=== PATIENT | male | born 1970 | race Caucasian/White ===

== ENCOUNTER 2018-12-26 14:56 | Emergency (ER) | payer BC ==
[2018-12-26] MEDS ORDERED: NS 1,000 ML IV ONE (15:02)
--- NOTE | 2018-12-26 15:14 | EDPHY ---
H & P Stated Complaint: Bloody Stool Time Seen by Provider: 12/26/18 15:02 HPI/ROS: CHIEF COMPLAINT: GI bleeding, upper respiratory infection, fatigue HISTORY OF PRESENT ILLNESS: The patient is referred to the emergency department by his primary care provider for evaluation of multiple complaints. The patient does have a history of diabetes, rheumatoid arthritis and Sjogren syndrome. He does chronically use NSAIDs. The patient has had 3 weeks of some upper abdominal discomfort which has been mild in nature. The patient has been having intermittent hematochezia. He describes fairly typical hematochezia with morning bowel movements. The patient denies any melena or maroon stools. The patient has had a history of an upper respiratory infection with sinus pressure. The patient was noted to be orthostatic in his primary care provider' s office. The patient did have some vomiting and diarrhea. REVIEW OF SYSTEMS: A comprehensive 10 point review of systems is otherwise negative aside from elements mentioned in the history of present illness. Source: Patient - Personal History Current Tetanus Diphtheria and Acellular Pertussis (TDAP): Yes - Medical/Surgical History Hx Asthma: No Hx Chronic Respiratory Disease: No Hx Diabetes: Yes Hx Cardiac Disease: No Hx Renal Disease: No Hx Cirrhosis: No Hx Alcoholism: No Hx HIV/AIDS: No Hx Splenectomy or Spleen Trauma: No Other PMH: arthritis, dm 2, htn - Social History Smoking Status: Never smoked - Physical Exam Exam: General Appearance: Alert, no distress Eyes: Pupils equal and round no pallor or injection ENT, Mouth: Mucous membranes moist Respiratory: There are no retractions, lungs are clear to auscultation Cardiovascular: Regular rate and rhythm Gastrointestinal: Abdomen is soft and nontender, no masses, bowel sounds normal Rectal: Multiple external hemorrhoids noted, none bleeding, brown stool noted Neurological: 5/5 strength all 4 extremities Skin: Warm and dry, no rashes Musculoskeletal: Neck is supple nontender Extremities: symmetrical, full range of motion Psychiatric: Patient is oriented X 3, there is no agitation Constitutional: Initial Vital Signs Temperature (C) 37.4 C 12/26/18 15:04 Heart Rate 96 12/26/18 15:04 Respiratory Rate 18 12/26/18 15:04 Blood Pressure 136/93 H 12/26/18 15:04 O2 Sat (%) 98 12/26/18 15:04 O2 Delivery Mode Room Air Allergies/Adverse Reactions: adhesive tape Allergy (Verified 12/26/18 15:02) Home Medications: Medication Instructions Recorded Cozaar 12/26/18 Diclofenac Sodium 12/26/18 Medrol 12/26/18 Metformin HCl 12/26/18 Orencia 12/26/18 Simvastatin 12/26/18 Medical Decision Making - Diagnostics Imaging Results: Chest x-ray PA lateral. Impression negative for pneumonia or focal infiltrate. ED Course/Re-evaluation: The patient is referred emergency department secondary to concerns about possible anemia. Patient has had some very mild intermittent hematochezia. The patient is noted to be hemodynamically stable. He has heme-negative stool from below. He does have hemorrhoids on exam. The patient does have mild anemia which is chronic. The patient is metabolic panel is within normal limits. He has of slightly elevated transaminitis. He has no right upper quadrant pain or tenderness. The patient has had symptoms of a cough and upper respiratory infection. Patient has no hypoxemia or fever. The patient has had a cough but has no evidence of a pneumonia on chest x-ray. At this point time the patient has had mild intermittent hematochezia without evidence of significant blood loss. He has no hypotension or tachycardia in the emergency department. I do feel it is reasonable to have the patient begin a proton pump inhibitor and stop taking his NSAIDs. The patient should schedule a follow-up appointment with Gastroenterology. The patient does have symptoms of an upper respiratory infection which is viral in nature. I see no indication for antibiotics at this point time. Plan for recheck of LFTs with primary care provider in 1-2 weeks. Patient is discharged home with customary aftercare instructions and return precautions. Differential Diagnosis: Differential diagnosis considered includes upper GI bleed, lower GI bleed, bronchitis, pneumonia, dehydration - Data Points Laboratory Results: Laboratory Results 12/26/18 15:10 12/26/18 15:10 12/26/18 12/26/18 12/26/18 15:37 15:14 15:10 WBC RBC Hgb POC Hgb 11.2 gm/dL L gm/dL (13.7-17.5) Hct POC Hct 33 % L % (40-51) MCV MCH MCHC RDW Plt Count MPV Neut % (Auto) Lymph % (Auto) [place] % (Auto) Eos % (Auto) Baso % (Auto) Nucleat RBC Rel Count Absolute Neuts (auto) Absolute Lymphs (auto) Absolute Monos (auto) Absolute Eos (auto) Absolute Basos (auto) Absolute Nucleated RBC Immature Gran % Seg Neutrophils % Band Neutrophils % Lymphocytes % Monocytes % Eosinophils % Basophils % Metamyelocytes % Myelocytes % Promyelocytes % Blast Cells % Immature Gran # Absolute Seg Neuts Absolute Band Neuts Absolute Lymphocytes Absolute Monocytes Absolute Eosinophils Absolute Basophils Absolute Metamyelocyte Absolute Myelocytes Absolute Promyelocytes Absolute Plasma Cells Absolute Blast Cells Plasma Cells % Smudge Cells Platelet Estimate Polychromasia Hypochromasia Microcytic Cells Smear Review By PT 13.0 SEC SEC (12.0-15.0) INR 1.02 (0.83-1.16) APTT 25.8 SEC SEC (23.0-38.0) POC Sodium 136 mEq/L mEq/L (135-145) Sodium POC Potassium 5.4 mEq/L H mEq/L (3.3-5.0) Potassium POC Chloride 102 mEq/L mEq/L (97-110) Chloride Carbon Dioxide POC Total CO2 25 mEq/L mEq/L (22-31) Anion Gap POC BUN 14 mg/dL mg/dL (7-23) BUN Creatinine POC Creatinine 0.8 mg/dL mg/dL (0.7-1.3) Estimated GFR Glucose POC Glucose 96 mg/dL mg/dL (70-100) Calcium Total Bilirubin Conjugated Bilirubin Unconjugated Bilirubin AST ALT Alkaline Phosphatase Total Protein Albumin Lipase Stool Occult Bld Scrn NEGATIVE (NEGATIVE) 12/26/18 12/26/18 15:10 15:10 WBC 6.28 10^3/uL 10^3/uL (3.80-9.50) RBC 4.39 10^6/uL L 10^6/uL (4.40-6.38) Hgb 11.2 g/dL L g/dL (13.7-17.5) POC Hgb Hct 34.2 % L % (40.0-51.0) POC Hct MCV 77.9 fL L fL (81.5-99.8) MCH 25.5 pg L pg (27.9-34.1) MCHC 32.7 g/dL g/dL (32.4-36.7) RDW 15.9 % H % (11.5-15.2) Plt Count 187 10^3/uL 10^3/uL (150-400) MPV 9.5 fL fL (8.7-11.7) Neut % (Auto) Not Reported Lymph % (Auto) Not Reported [place] % (Auto) Not Reported Eos % (Auto) Not Reported Baso % (Auto) Not Reported Nucleat RBC Rel Count Not Reported Absolute Neuts (auto) Not Reported Absolute Lymphs (auto) Not Reported Absolute Monos (auto) Not Reported Absolute Eos (auto) Not Reported Absolute Basos (auto) Not Reported Absolute Nucleated RBC Not Reported Immature Gran % Not Reported Seg Neutrophils % 21.0 % % Band Neutrophils % 1.0 % % Lymphocytes % 73.0 % % Monocytes % 5.0 % % Eosinophils % 0.0 % % Basophils % 0.0 % % Metamyelocytes % 0.0 % % Myelocytes % 0.0 % % Promyelocytes % 0.0 % % Blast Cells % 0.0 % % Immature Gran # Not Reported Absolute Seg Neuts 1.32 10^3/uL L 10^3/uL (1.70-6.50) Absolute Band Neuts 0.06 10^3/uL 10^3/uL (0.00-0.70) Absolute Lymphocytes 4.58 10^3/uL H 10^3/uL (1.00-3.00) Absolute Monocytes 0.31 10^3/uL 10^3/uL (0.30-0.80) Absolute Eosinophils 0.00 10^3/uL L 10^3/uL (0.03-0.40) Absolute Basophils 0.00 10^3/uL L 10^3/uL (0.02-0.10) Absolute Metamyelocyte 0.00 10^3/mL 10^3/mL (0.00-0.00) Absolute Myelocytes 0.00 10^3/mL 10^3/mL (0.00-0.00) Absolute Promyelocytes 0.00 10^3/uL 10^3/uL (0.00-0.00) Absolute Plasma Cells 0.00 10^3/uL 10^3/uL (0.00-0.00) Absolute Blast Cells 0.00 10^3/uL 10^3/uL (0.00-0.00) Plasma Cells % 0.0 % % Smudge Cells 2+ H Platelet Estimate ADEQUATE (ADEQ) Polychromasia 1+ H Hypochromasia 1+ H Microcytic Cells 1+ H Smear Review By Pending PT INR APTT POC Sodium Sodium 134 mEq/L L mEq/L (135-145) POC Potassium Potassium 4.2 mEq/L mEq/L (3.5-5.2) POC Chloride Chloride 102 mEq/L mEq/L (97-110) Carbon Dioxide 19 mEq/l L mEq/l (22-31) POC Total CO2 Anion Gap 13 mEq/L mEq/L (6-14) POC BUN BUN 12 mg/dL mg/dL (7-23) Creatinine 0.8 mg/dL mg/dL (0.7-1.3) POC Creatinine Estimated GFR > 60 Glucose 94 mg/dL mg/dL (70-100) POC Glucose Calcium 9.0 mg/dL mg/dL (8.5-10.4) Total Bilirubin 0.6 mg/dL mg/dL (0.1-1.4) Conjugated Bilirubin 0.2 mg/dL mg/dL (0.0-0.5) Unconjugated Bilirubin 0.4 mg/dL mg/dL (0.0-1.1) AST 75 IU/L H IU/L (17-59) ALT 86 IU/L H IU/L (21-72) Alkaline Phosphatase 106 IU/L IU/L (38-126) Total Protein 6.9 g/dL g/dL (6.3-8.2) Albumin 4.2 g/dL g/dL (3.5-5.0) Lipase 63 IU/L IU/L (23-300) Stool Occult Bld Scrn Medications Given: Discontinued Medications Sodium Chloride (Ns) 1,000 mls @ 0 mls/hr IV EDNOW ONE; Wide Open PRN Reason: Protocol Stop: 12/26/18 15:03 Last Admin: 12/26/18 15:09 Dose: 1,000 mls Point of Care Test Results: Chemistry 12/26/18 15:14 POC Sodium 136 mEq/L mEq/L (135-145) POC Potassium 5.4 mEq/L H mEq/L (3.3-5.0) POC Chloride 102 mEq/L mEq/L (97-110) POC Total CO2 25 mEq/L mEq/L (22-31) POC BUN 14 mg/dL mg/dL (7-23) POC Creatinine 0.8 mg/dL mg/dL (0.7-1.3) POC Glucose 96 mg/dL mg/dL (70-100) ISTAT H&H 12/26/18 15:14 POC Hgb 11.2 gm/dL L gm/dL (13.7-17.5) POC Hct 33 % L % (40-51) Departure - Departure Disposition: Home, Routine, Self-Care Clinical Impression: Hemorrhoid, Upper respiratory infection Condition: Good Instructions: Hemorrhoids (ED) Additional Instructions: 1. Your laboratory testing is normal in the emergency department today aside from slightly elevated liver function test which should be recheck by your primary care provider in 2 weeks. 2. You do have hemorrhoids which are likely the cause of your bleeding. Please use preparation H for the next week 3. I do recommend trying to cut back on your nonsteroidal anti-inflammatory medications. You should begin taking Zantac or Prilosec for your mild upset stomach. 4. Please schedule a follow-up appointment with a fish header you have been referred to for any ongoing mild symptoms. 5. Please return to the ED for markedly worsening symptoms or other concerns. 6. You do have a upper respiratory infection which seems to be viral. I see no indication for antibiotics at this point time. Referrals: Genaro Sanchez MD [Primary Care Provider] - As per Instructions
[2018-12-26 15:19] LABS: PLATELET COUNT 187 10^3/uL (150-400)
[2018-12-26 15:28] LABS: INR 1.02 (0.83-1.16)
--- NOTE | 2018-12-26 16:47 | CPEKG ---
Test Reason : OPEN Blood Pressure : / mmHG Vent. Rate : 092 BPM Atrial Rate : 093 BPM P-R Int : 150 ms QRS Dur : 093 ms QT Int : 362 ms P-R-T Axes : 030 -08 031 degrees QTc Int : 448 ms Sinus rhythm Confirmed by Luis Carlos Mcneill ([id number]) on 12/26/2018 4:47:16 PM Referred By: Luis Carlos Mcneill Confirmed By:Luis Carlos Mcneill
[2018-12-26 16:50] VITALS: BP 124/76
== END 2018-12-26 16:35 | disposition home or self-care (01) ==
DX: K64.9 Unspecified hemorrhoids (principal); J06.9 Acute upper respiratory infection, unspecified; E11.9 Type 2 diabetes mellitus without complications; I10 Essential (primary) hypertension; M06.9 Rheumatoid arthritis, unspecified
CPT/HCPCS: 82435-PO; 82565-PO; 82947-PO; 84132-PO; 84295-PO; 84520-PO; 85014-ER